=== PATIENT | female | born 1985 | race Two or more races ===

== ENCOUNTER 2016-05-04 17:34 | Emergency (ER) | payer BC ==
[2016-05-04 17:35] VITALS: BMI 26.3
[2016-05-04 17:59] VITALS: TEMP 98.6
[2016-05-04 18:14] LABS: AUTOMATED BASOPHIL 0.7 % (0-2); AUTOMATED EOSINOPHIL 1.1 % (0-5); AUTOMATED LYMPH 35.3 % (17-44); AUTOMATED NEUTROPHIL 55.9 % (45-76); MPV 8.2 fL (7.4-10.4)
[2016-05-04 18:25] LABS: BLOOD UREA NITROGEN 9 MG/DL (7-17); CALCULATED OSMOLALITY 271 MOs/Kg (270-290); CHLORIDE 100 mEq/L (98-107); GLUCOSE 123 MG/DL (70-99); SODIUM LEVEL 141 mEq/L (137-146); TOTAL PROTEIN 8.4 G/DL (6.3-8.2)
[2016-05-04] MEDS ORDERED: NS 1,000 ML IV ONE (23:39)
[2016-05-04] MEDS ORDERED: ONDANSETRON HCL 4 MG/2 ML VIAL IV ONE (23:39)
[2016-05-04] MEDS ORDERED: Pharmacy Review for Metformin - IV Contrast Given SCH (23:45)
--- NOTE | 2016-05-04 23:50 | EDPRACDOC ---
- General Information Chief Complaint: Abdominal Pain Stated Complaint: DIARRHEA/VOMITING ABD PAIN Time Seen by Provider: 05/04/16 23:36 Information Source: Patient Mode Of Arrival: Car Home Medications: Home Medications Sertraline HCl [Zoloft] 100 mg PO DAILY 12/27/14 Oxycodone HCl [Roxicodone] 5 mg PO Q4H PRN 08/01/15 Promethazine [Phenergan] 1 tab PO Q6H PRN 08/01/15 Ketorolac Tromethamine [Toradol] 10 mg PO Q6H PRN #20 tab 05/05/16 Ondansetron [Zofran Odt] 4 mg PO Q6H PRN #10 tab.rapdis 05/05/16 Oxycodone HCl [Roxicodone] 5 mg PO Q6H #15 tablet 05/05/16 Sulfamethoxazole/Trimethoprim [Bactrim Ds Tablet] 1 tab PO BID #14 tab 05/05/16 Allergies/Adverse Reactions: Allergies Allergy/AdvReac Type Severity Reaction Status Date / Time acetaminophen [From Vicodin] Allergy Unknown UNK Verified 05/04/16 17:58 hydrocodone bitartrate AdvReac Mild RASH Verified 05/04/16 17:58 [From Vicodin] - History of Present Illness Onset: 3 DAYS HPI: PT SAID THAT SHE HAS HAD RLQ ABD PAIN FOR THE PAST 3 DAYS. THE PT HAS ALSO HAD SOME NAUSEA AND DIARRHEA. Pain Location: Reports: RLQ Pain Context: Reports: Spontaneous Pain Severity: Moderate Pain Quality: Reports: Sharp Pain Radiation: Reports: No Radiation Last Menstrual Period: 1 DAY : No Adult Abdominal History: Reports: Abdominal Surgery. Denies: Urolithiasis Female Abdominal History: Reports: Abdominal Surgery. Denies: Ectopic, PID, Urolithiasis Female Associated Signs & Symptoms: Reports: Nausea Oral Intake: Normal Urinary Output: Normal ED Past Medical History - Patient Medical History Cardiac History: Denies: Atrial Fibrillation, Hypercholesterolemia, Internal Defibrillator Respiratory History: Denies: Bronchitis, Asbestosis, Aspiration Pneumonia, Cough , Chronic Bronchitis GI/ History: Denies: Liver Failure, Gastroesophageal Reflux Psychological History: Reports: Depression Systemic History: Additional Past Medical History: COLITIS Surgical History: Reports: Cholecystectomy - Family Medical History Reports: Hypertension (Dad), Cancer (G-Mother). Denies: Diabetes, Stroke, Cardiac Disorders - Social Medical History Smoking Status: Never smoker ETOH: None Substance Abuse: None Lives In: Home EDM Review of Systems - Review of Systems ROS Negative Except as Marked: Yes All systems reviewed and were negative except as marked Gastrointestinal: Nausea, Pain - Physical Exam Constitutional: Alert (Awake), No apparent distress Oriented to: Time, Person, Place Last recorded Vital Signs: Last Vital Signs Temp 98.6 F 05/04/16 17:56 Pulse 70 05/04/16 23:51 Resp 21 05/04/16 23:51 BP 109/62 05/04/16 23:51 Pulse Ox 97 05/04/16 23:51 Oxygen Pulse Oxygen Saturation 97 O2 Device Room Air Oxygen Flow Rate Fraction of Inspired Oxygen ( FIO2) - HEENT Head: Normal ( normocephalic) Eye Exam: Normal (PERRL, EOMI, Sclera white) Oropharynx: Normal (Pharynx:Moist without exudate,Gums-no swelling) ENT EAC: Normal TMJ: Normal Nose: No Symptoms Reported (septum midline) Neck: Normal (FROM, trachea at midline) - Respiratory/Cardiovascular Respiratory: Normal - CTA (BBS clear to auscultation without adventitious sounds ) Cardiovascular: Normal (RRR without murmur, gallop or rub) - GI Auscultation: Normal (NABS) Palpation: Normal (Soft,No rebound or guarding, non distended) Tenderness: Moderate, RLQ Logan's Sign: Negative - Musculoskeletal Back: Normal (Non-Tender) Extremities: Normal (Normal tone, Pulses 2+ No cyanosis or edema, FROM) - Integumentary Skin: Normal, Warm, Dry Lymphatics: Normal (no adenopathy) - Neurologic Memory Impaired: Normal Motor Function: Normal (Normal tone, Pulses 2+ No cyanosis or edema, FROM) Cranial Nerve: Normal (CN II-X11 intact sensation, strength 5/5) Cerebellar: Normal Mood Description: Normal Thought: Coherent Perception: Normal - Results 05/04/16 18:02 05/04/16 18:02 WBC 12.7 xk/uL (3.8-10.8) H 05/04/16 18:02 RBC 4.77 xM/uL (4.20-5.40) 05/04/16 18:02 Hgb 12.8 g/dL (12.0-16.0) 05/04/16 18:02 Hct 38.7 % (36-47) 05/04/16 18:02 MCV 81 fL (81-99) 05/04/16 18:02 MCH 26.9 pg (27-32) L 05/04/16 18:02 MCHC 33.1 g/dl (33-36) 05/04/16 18:02 RDW 14.4 % (11.5-14.5) 05/04/16 18:02 Plt Count 326 xk/uL (130-400) 05/04/16 18:02 MPV 8.2 fL (7.4-10.4) 05/04/16 18:02 Neut % (Auto) 55.9 % (45-76) 05/04/16 18:02 Lymph % (Auto) 35.3 % (17-44) 05/04/16 18:02 Gila % (Auto) 7.0 % (3-10) 05/04/16 18:02 Eos % (Auto) 1.1 % (0-5) 05/04/16 18:02 Baso % (Auto) 0.7 % (0-2) 05/04/16 18:02 Absolute Neuts (auto) 6.99 xk/uL (1.7-8.2) 05/04/16 18:02 Absolute Lymphs (auto) 4.45 xk/uL (0.65-4.75) 05/04/16 18:02 Sodium 141 mEq/L (137-146) 05/04/16 18:02 Potassium 3.7 mEq/L (3.5-5.1) 05/04/16 18:02 Chloride 100 mEq/L (98-107) 05/04/16 18:02 Carbon Dioxide 28 mMOL/L (22-33) 05/04/16 18:02 Anion Gap 17 mEq/L (8-16) H 05/04/16 18:02 BUN 9 MG/DL (7-17) 05/04/16 18:02 Creatinine 0.60 MG/DL (0.52-1.04) 05/04/16 18:02 Estimated GFR (MDRD) > 60 mL/min (>=60) 05/04/16 18:02 Glucose 123 MG/DL (70-99) H 05/04/16 18:02 Calculated Osmolality 271 MOs/Kg (270-290) 05/04/16 18:02 Calcium 10.0 MG/DL (8.4-10.2) 05/04/16 18:02 Total Bilirubin 0.6 MG/DL (0.2-1.3) 05/04/16 18:02 AST 24 IU/L (14-36) 05/04/16 18:02 ALT 39 IU/L (9-52) 05/04/16 18:02 Alkaline Phosphatase 72 IU/L (38-126) 05/04/16 18:02 Total Protein 8.4 G/DL (6.3-8.2) H 05/04/16 18:02 Albumin 5.0 G/DL (3.5-5.0) 05/04/16 18:02 Lipase 99 U/L (23-300) 05/04/16 18:02 Urine Color Yellow 05/05/16 00:31 Urine Clarity Cldy 05/05/16 00:31 Urine pH 6.0 (5.0-8.0) 05/05/16 00:31 Ur Specific [place] 1.025 (1.003-1.035) 05/05/16 00:31 Urine Protein 1+ (NEG/TRACE) H 05/05/16 00:31 Urine Glucose (UA) Neg (NEGATIVE) 05/05/16 00:31 Urine Ketones Neg (NEGATIVE) 05/05/16 00:31 Urine Occult Blood 3+ (NEG/TRACE) H 05/05/16 00:31 Urine Nitrite Neg (NEGATIVE) 05/05/16 00:31 Urine Bilirubin Neg (NEGATIVE) 05/05/16 00: Urine Urobilinogen <2.0 MG/DL (0-1) 05/05/16 00:31 Ur Leukocyte Esterase 1+ (NEGATIVE) H 05/05/16 00:31 Urine RBC 2-5 (0-5) 05/05/16 00:31 Urine WBC 20-30 (0-5) H 05/05/16 00:31 Ur Epithelial Cells 3+ 05/05/16 00:31 Urine Bacteria Few (NEG/FEW) 05/05/16 00:31 Urine Mucus Large (NEG/OCC) 05/05/16 00:31 Urine Test Neg (NEGATIVE) 05/05/16 00:31 Microbiology 05/05/16 01:04 Trichomonas Wet Mount - Final Vaginal 05/05/16 01:04 ARNULFO Preparation - Final Vaginal Lab Results 05/05/16 05/05/16 05/04/16 00:31 00:31 18:02 WBC 12.7 H RBC 4.77 Hgb 12.8 Hct 38.7 MCV 81 MCH 26.9 L MCHC 33.1 RDW 14.4 Plt Count 326 MPV 8.2 Neut % (Auto) 55.9 Lymph % (Auto) 35.3 Gila % (Auto) 7.0 Eos % (Auto) 1.1 Baso % (Auto) 0.7 Absolute Neuts (auto) 6.99 Absolute Lymphs (auto) 4.45 Sodium Potassium Chloride Carbon Dioxide Anion Gap BUN Creatinine Estimated GFR (MDRD) Glucose Calculated Osmolality Calcium Total Bilirubin AST ALT Alkaline Phosphatase Total Protein Albumin Lipase Urine Color Yellow Urine Clarity Cldy Urine pH 6.0 Ur Specific [place] 1.025 Urine Protein 1+ H Urine Glucose (UA) Neg Urine Ketones Neg Urine Occult Blood 3+ H Urine Nitrite Neg Urine Bilirubin Neg Urine Urobilinogen <2.0 Ur Leukocyte Esterase 1+ H Urine RBC 2-5 Urine WBC 20-30 H Ur Epithelial Cells 3+ Urine Bacteria Few Urine Mucus Large Urine Test Neg 05/04/16 18:02 WBC RBC Hgb Hct MCV MCH MCHC RDW Plt Count MPV Neut % (Auto) Lymph % (Auto) Gila % (Auto) Eos % (Auto) Baso % (Auto) Absolute Neuts (auto) Absolute Lymphs (auto) Sodium 141 Potassium 3.7 Chloride 100 Carbon Dioxide 28 Anion Gap 17 H BUN 9 Creatinine 0.60 Estimated GFR (MDRD) > 60 Glucose 123 H Calculated Osmolality 271 Calcium 10.0 Total Bilirubin 0.6 AST 24 ALT 39 Alkaline Phosphatase 72 Total Protein 8.4 H Albumin 5.0 Lipase 99 Urine Color Urine Clarity Urine pH Ur Specific [place] Urine Protein Urine Glucose (UA) Urine Ketones Urine Occult Blood Urine Nitrite Urine Bilirubin Urine Urobilinogen Ur Leukocyte Esterase Urine RBC Urine WBC Ur Epithelial Cells Urine Bacteria Urine Mucus Urine Test - Diagnostic Imaging Abdomen Image interpreted by: Radiologist 05/05/16 01:44 1. Normal appendix, no appendicitis. 2. Corpus luteal cyst in the left ovary. Prominent left ovarian and adnexal vascularity, can be seen with pelvic congestion syndrome. Decision Time to Discharge: 01:45 - Departure Yes I personally saw and evaluated the patient. Disposition: Home Condition: Fair Final Diagnosis: Abdominal pain, UTI (urinary tract infection) Instructions: Urinary Tract Infection in Women (ED), Acute Abdominal Pain (ED) Education/Counseling Given To: Patient Education/Counseling Given Regarding: Diagnosis, Treatment, Follow Up Referrals: None,No Provider [Primary Care Provider] - One Week Nando Mendoza MD [Staff Physician] - One Week Carl Murphy MD [Staff Physician] - One Week Prescriptions: New Ketorolac Tromethamine [Toradol] 10 mg PO Q6H PRN #20 tab PRN Reason: Pain Ondansetron [Zofran Odt] 4 mg PO Q6H PRN #10 tab.rapdis PRN Reason: Nausea/Vomiting Oxycodone HCl [Roxicodone] 5 mg PO Q6H #15 tablet Sulfamethoxazole/Trimethoprim [Bactrim Ds Tablet] 1 tab PO BID #14 tab No Action Sertraline HCl [Zoloft] 100 mg PO DAILY Oxycodone HCl [Roxicodone] 5 mg PO Q4H PRN PRN Reason: Pain Promethazine [Phenergan] 1 tab PO Q6H PRN PRN Reason: Nausea
[2016-05-05 00:45] LABS: LEUKOCYTES/URINE 1+ (NEGATIVE); NITRITE/URINE NEG (NEGATIVE); URINE OCCULT BLOOD 3+ (NEG/TRACE); WBC/URINE 20-30 (0-5)
--- NOTE | 2016-05-05 01:43 | DIRPT ---
CLINICAL DATA: Right lower quadrant pain. Nausea, vomiting and diarrhea with pelvic pain for 4 days. EXAM: CT ABDOMEN AND PELVIS WITH CONTRAST TECHNIQUE: Multidetector CT imaging of the abdomen and pelvis was performed using the standard protocol following bolus administration of intravenous contrast. CONTRAST: 100 mL Isovue 370 IV COMPARISON: CT 12/27/2014 FINDINGS: Lower chest: The included lung bases are clear. Liver: No focal lesion. Hepatobiliary: Clips in the gallbladder fossa postcholecystectomy. No biliary dilatation. Pancreas: No ductal dilatation or inflammation. Spleen: Normal. Small cleft anteriorly. Adrenal glands: No nodule. Kidneys: Symmetric renal enhancement. No hydronephrosis. No perinephric stranding or focal renal abnormality. Stomach/Bowel: Stomach physiologically distended. There are no dilated or thickened small bowel loops. Small volume of stool throughout the colon without colonic wall thickening. The appendix is normal. Vascular/Lymphatic: No retroperitoneal adenopathy. Abdominal aorta is normal in caliber. Reproductive: Intrauterine device appropriately positioned in the uterus. Peripherally enhancing 1.7 cm lesion in the left ovary likely a corpus luteal cyst. There is prominent left ovarian adnexal vascularity with prominence of the left ovarian vein. Right ovary is normal in size. Bladder: Decompressed, not well evaluated. Other: No free air, free fluid, or intra-abdominal fluid collection. Musculoskeletal: There are no acute or suspicious osseous abnormalities. IMPRESSION: 1. Normal appendix, no appendicitis. 2. Corpus luteal cyst in the left ovary. Prominent left ovarian and adnexal vascularity, can be seen with pelvic congestion syndrome. Electronically Signed By: Ashley Silva M.D. On: 05/05/2016 01:41
[2016-05-05] MEDS ORDERED: TRIMETHOPRIM-SULFAMETHOXAZOLE TAB PO ONE (01:46)
[2016-05-05 01:58] VITALS: BP 108/63; PULSE 75
[2016-05-06 21:37] LABS: CHLAMY BY NUCLEIC ACID AMP Negative (Negative)
[2016-05-07 11:46] LABS: GC BY NUCLEIC ACID AMP Negative (Negative)
== END 2016-05-05 02:00 | disposition home or self-care (01) ==
LOC: ED 17:34
DX: N39.0 Urinary tract infection, site not specified (principal)
CPT/HCPCS: 36415; 74177; 80053; 81001; 81025; 83690; 85025; 87210; 87220; 87491; 87591; 96361; 96374; 99284; A9698; J2405; J3490